=== PATIENT | female | born 1955 | race Caucasian/White ===

== ENCOUNTER 2021-01-21 04:32 | Day surgery (SDC) | payer BC ==
[2021-01-19 17:11] VITALS: BMI 43.6
[2021-01-21 11:48] VITALS: TEMP 97
[2021-01-21 12:33] VITALS: BP 114/56; PULSE 62
== END 2021-01-21 12:12 | disposition home or self-care (01) ==
LOC: JASU-ENDO 04:32
PROVIDERS: ATTEND Internal Medicine Gastroenterology
PROC: 0DBP8ZX Excision of Rectum, Via Natural or Artificial Opening Endoscopic, Diagnostic (ICD-10-PCS; 2021-01-21)
PROC: 0DBF8ZX Excision of Right Large Intestine, Via Natural or Artificial Opening Endoscopic, Diagnostic (ICD-10-PCS; principal; 2021-01-21 11:15)
DX: Z12.11 Encounter for screening for malignant neoplasm of colon (principal); K51.20 Ulcerative (chronic) proctitis without complications; Z86.010 Personal history of colon polyps
CPT/HCPCS: 88305-TC